=== PATIENT | female | born 1970 | race Caucasian/White ===

== ENCOUNTER 2020-11-24 08:09 | Emergency (ER) | payer MEDICAID ==
[~2020-11-24] VITALS: Ht 165.1 cm; Wt 65.0 kg
[~2020-11-24 08:09] MED LIST: CITA20TA28 PO
[2020-11-24] MEDS ORDERED: ketorolac trometh. 30mg/ml inj. IM ONE (08:35)
[2020-11-24] MEDS ORDERED: HYDR-3965 PO (09:33)
[2020-11-24 09:39] VITALS: BP 144/68
== END 2020-11-24 09:41 | disposition home or self-care (01) ==
LOC: ER 08:10
DX: S16.1XXA Strain of muscle, fascia and tendon at neck level, initial encounter (principal); S00.83XA Contusion of other part of head, initial encounter; M26.621 Arthralgia of right temporomandibular joint; M25.511 Pain in right shoulder; M79.644 Pain in right finger(s); Z96.611 Presence of right artificial shoulder joint; Z88.8 Allergy status to other drugs, medicaments and biological substances; Z79.899 Other long term (current) drug therapy; Y04.2XXA Assault by strike against or bumped into by another person, initial encounter; Y93.89 Activity, other specified; Y92.89 Other specified places as the place of occurrence of the external cause; Y99.8 Other external cause status
CPT/HCPCS: 72040; 73030; 73100; 96372; 99284; J1885

== ENCOUNTER 2025-08-22 06:13 | Outpatient (CLI) | payer MEDICAID ==
[~2025-08-22 06:13] MED LIST changes: +CITA-178 PO; -CITA20TA28 PO
[2025-08-22] MEDS ORDERED: iohexol 300 MG/1 ML 50ml polymer ONE (06:24)
[2025-08-22] MEDS ORDERED: LIDOcaine 1%/PF 5ML 10 MG/ML VIAL ONE (06:24)
[2025-08-22] MEDS ORDERED: GADOTERATE MEGLUMINE 7.5 MMOL/15 ML VIAL IV ONE (06:25)
[2025-08-22] MEDS ORDERED: LIDOcaine 1% 30ml preserv. free vial ONE (06:25)
--- NOTE | 2025-08-22 10:21 | RADIOLOGY REPORT ---
ANGIO ARTHROGRAM (A) Date: 08/22/2025 07:34 AM Clinical History: PAIN IN RIGHT SHOULDER Comparison: MR MRI UPPER EXTREMITY LEFT on DOS: 07/04/25, ANGIO ARTHROGRAM (A) on DOS: 07/04/25 Procedure: Verbal and written informed consent were obtained from the patient for the procedure of left knee joint fluoroscopically guided arthrogram, after the procedure, risks, and benefits of the procedure were explained to the patient. Risks include bleeding, infection, reaction to injected medications, and damage to surrounding anatomic structures. The patient's questions were answered. The patient's most recent medical history was reviewed. A time out was performed to verify the patient's name, date of , and correct location of the procedure, prior to initiation of the procedure. The patient was placed supine on the fluoroscopic table and the area overlying the left knee joint was prepped and draped in the usual sterile fashion. The patient tolerated the procedure well. There were no immediate complications. Home-care instructions were reviewed with the patient prior to the patient's discharge from the fluoroscopy suite. The patient verbally affirmed understanding of these instructions. Impression: Technically successful fluoroscopically guided left knee joint arthrogram. The patient was transported to MRI for further imaging at the completion of the procedure. Procedure by Dr. Nobles
--- NOTE | 2025-08-22 11:41 | RADIOLOGY REPORT ---
CLINICAL INDICATION: PAIN IN LEFT KNEE TECHNIQUE: Multiplanar, multisequence MRI of the left knee was performed with intra-articular contrast. Contrast: None. COMPARISON: ANGIO ARTHROGRAM (A) on DOS: 08/22/25 FINDINGS: Joint space and synovium: There is good distention of the knee joint with dilute gadolinium. There is no synovitis. There is a popliteal fossa cyst measuring 3.5 cm. Bones and articular cartilage: There are small foci susceptibility artifact in the proximal tibia and in the distal femur related to prior ACL reconstruction. There is no evidence of acute fracture or bone marrow edema. The alignment is normal. The articular cartilage is preserved in the patellofemoral compartment. There is chondral thinning on both sides of the medial compartment and to a lesser extent the lateral compartment. There is a focal region of chondral delamination in the central lateral tibia. Focal chondral thinning also noted in the posterior aspect of the lateral tibia. Menisci: The medial meniscus is intact. The lateral meniscus is intact. Tendons and ligaments: The tendons in the posterior knee are intact. The extensor mechanism is intact. Status post ACL reconstruction. Graft appears attenuated but is no disruption of the graft. The posterior cruciate ligament is intact. The medial collateral ligament and the lateral collateral ligament stabilizing complex are intact. Muscles: Regional muscles are preserved in bulk and signal characteristics. Other: Trace fluid in the deep infrapatellar bursa. IMPRESSION: 1. Status post ACL reconstruction. The graft appears attenuated but is intact. 2. No evidence of meniscal tear. 3. 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 4. Popliteal fossa cyst.
== END 2025-08-22 23:59 | disposition home or self-care (01) ==
LOC: RAD 06:13
PROVIDERS: ATTEND Family Medicine Sports Medicine
DX: M17.12 Unilateral primary osteoarthritis, left knee (principal); M94.262 Chondromalacia, left knee; M71.22 Synovial cyst of popliteal space [Baker], left knee; M23.302 Other meniscus derangements, unspecified lateral meniscus, unspecified knee; Z98.890 Other specified postprocedural states
CPT/HCPCS: 27369; 73722; 77002; A9575; J2003; J3490; Q9967